=== PATIENT | male | born 1995 | race Caucasian/White ===

== ENCOUNTER 2016-05-04 12:44 | Emergency (ER) | payer OTHER ==
[~2016-05-04] VITALS: Ht 170.2 cm; Wt 65.5 kg
[2016-05-04 12:53] VITALS: Ht 170.2 cm; Wt 65.5 kg
[2016-05-04] MEDS ORDERED: METOCLOPRAMIDE 10 MG INJ IV STA (13:43)
[2016-05-04] MEDS ORDERED: KETOROLAC 30 MG INJ IV STA (13:43)
[2016-05-04] MEDS ORDERED: DIPHENHYDRAMINE 50 MG INJ IV STA (13:43)
[2016-05-04] MEDS ORDERED: SOD CHLORIDE 0.9% 1,000 ML IV STA (13:43)
[2016-05-04] MEDS ORDERED: BEN50 PO (15:00)
[2016-05-04] MEDS ORDERED: FIORICET PO (15:00)
[2016-05-04] MEDS ORDERED: HYDR-3010 PO (15:00)
[2016-05-04 15:11] VITALS: TEMP 98.3
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
== END 2016-05-04 15:52 | disposition home or self-care (01) ==
LOC: FTE 12:44
DX: R51 Headache (principal); F41.9 Anxiety disorder, unspecified; Z87.891 Personal history of nicotine dependence
CPT/HCPCS: 96374; 96375; J1200; J1885; J2765; J7030; Z7502